=== PATIENT | male | born 1965 | race Caucasian/White ===

== ENCOUNTER 2024-10-30 11:01 | Outpatient (CLI) | payer OTHER, SELFPAY ==
--- NOTE | ~2024-10-30 | XR_ITS ---
Clinical Indication: Back pain PA and lateral views of the chest: Comparison: None Findings: The lungs are clear, without evidence of focal consolidation or pleural effusion. Cardiome diastinal silhouette is within normal limits. Bones and soft tissues are unremarkable. Impression: Normal chest. Reviewed, dictated and finalized at location . Impression: Normal chest.
--- NOTE | ~2024-10-30 | XR_ITS ---
Thoracic spine: Clinical Indication: Back pain AP and lateral views were performed. No fracture is seen. There is normal alignment of the vertebrae. The intervertebral disc spaces appe ar normal. Paravertebral soft tissues appear normal. Impression: No significant abnormalities noted. Reviewed, dictated and finalized at [facility]. Impression: No significant abnormalities noted.
--- OUTSIDE RECORDS SUMMARY | 2024-10-30 11:22 | XMS_ITS | Clinical Summary ---
Author Organization [facility] [employer] [place] Address [address] [address] Care Team Providers Care Anode Crew Supervisor Name Role Phone Unavailable Primary Care Provider Unavailabl e Active Problems No known active problems Encounters Date Type Department Care Team Description 09/25/2024 External Device Data [facility] ABSTRACTION Provider, Abstract 09/25/2024 External Device Data [facility] ABSTRACTION Provider, Abstract 09/25/2024 External Device Data [facility] ABSTRACTION Provider, Abstract 09/21/2024 Results Follow-Up [facility] [employer] [place] [address] [place] [address] Monika Chong MD TSH, LIPID PANEL, COMPREHENSIVE METABOLIC PANEL, CBC WITH DIFFERENTIAL 09/19/2024 10:00 AM CDT Office Visit [facility] [employer] [place] [address] [place] [address] Screening for condition (Primary Dx) from Last 3 Months Social History Tobacco Use Types Packs/Day Years Used Date Smoking Tobacco: Never Assessed Sex and Gender Information Value Date Recorded Sex Assigned at Not on file 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 Gender Identity Not on file Sexual Orientation Not on file Last Filed Vital Signs Vital Sign Reading Time Taken Comments Blood Pressure 114/62 09/19/2024 10:18 AM CDT Pulse - - Temperature - - Respiratory Rate - - Oxygen Saturation - - Inhaled Oxygen Concentration - - Weight 92.1 kg (203 lb) 09/19/2024 10:18 AM CDT Height 172.7 cm (5' 8) 09/19/2024 10:18 AM CDT Body Mass Index 30.87 09/19/2024 10:18 AM CDT Plan of Treatment Health Maintenance Due Date Last Done Comments Pre-Diabetes and Diabetes Screening 1965 HEPATITIS B VACCINES (1 of 3 - 19+ 3-dose series) 11/16 COLORECTAL SCREENING 12/01/2011 Colorectal Cancer Screening 12/01/2011 FIT-DNA Q 3 years 12/01/2011 FIT/FOBT Q 1 year 12/01/2011 Flex Sig/CT Colonography Q 5 years 12/01/2011 ZOSTER VACCINE (1 of 2) 2016 INFLUENZA VACCINE (#1) 2024 DTAP/TDAP/TD VACCINES (2 - Td or Tdap) 08/21/2032 Procedures Procedure Name Priority Date/Time Associated Diagnosis Comments CBC WITH DIFFERENTIAL Routine 09/19/2024 9:50 AM CDT Screening for condition COMPREHENSIVE METABOLIC PANEL Routine 09/19/2024 9:50 AM CDT Screening for condition LIPID PANEL Routine 09/19/2024 9:50 AM CDT Screening for condition TSH Routine 09/19/2024 9:50 AM CDT Screening for condition from Last 3 Months Results * CBC WITH DIFFERENTIAL (09/19/2024 9:50 AM CDT) WBC 5.9 3.8 - 10.8 Thousand/u L [facility] RBC 4.96 4.20 - 5.80 Million/uL [facility] HEMOGLOBIN 15.2 13.2 - 17.1 g/dL [facility] HEMATOCRIT 46.0 38.5 - 50.0 % [facility] MCV 92.7 80.0 - 100.0 fL [facility] MCH 30.6 27.0 - 33.0 pg [facility] MCHC 33.0 32.0 - 36.0 g/dL [facility] Comment: For adults, a slight decrease in the calculated MCHC value (in the range of 30 to 32 g/dL) is most likely not clinically significant; however, it should be interpreted with caution in correlation with other red cell parameters and the patient's clinical condition. RDW 12.7 11.0 - 15.0 % [facility] PLATELETS 281 140 - 400 Thousand/u L [facility] MPV 9.9 7.5 - 12.5 fL [facility] NEUTROPHIL ABSOLUTE 3,918 1,500 - 7,800 cells/uL [facility] LYMPHOCYTE ABSOLUTE 1,375 850 - 3,900 cells/uL [facility] MONOCYTE ABSOLUTE 443 200 - 950 cells/uL [facility] EOSINOPHIL ABSOLUTE 118 15 - 500 cells/uL [facility] BASOPHILS ABSOLUTE 47 0 - 200 cells/uL [facility] NEUTROPHIL 66.4 % [facility] LYMPHOCYTES 23.3 % [facility] MONOCYTE 7.5 % [facility] EOSINOPHILS 2.0 % [facility] BASOPHILS 0.8 % [facility] Comment: Test Performed at: [facility] [address] [place] [address] Melania Falcon MD Blood 09/19/2024 9:50 AM CDT 09/20/2024 3:30 AM CDT us Monika Chong MD HEMATOLOGY ORDERABLES Final Re sult [facility] [phone] [facility] [address] [place] [phone] * TSH (09/19/2024 9:50 AM CDT) TSH 3.11 0.40 - 4.50 mIU/L [facility] Comment: Test Performed at: [facility] [address] [place] [address] Melania Falcon MD Blood 09/19/2024 9:50 AM CDT 09/20/2024 3:30 AM CDT us Monika Chong MD CHEMISTRY ORDERABLES Final Res ult [facility] [phone] [facility] [address] * (ABNORMAL) LIPID PANEL (09/19/2024 9:50 AM CDT) CHOLESTEROL 167 <200 mg/dL [facility] HDL 45 > OR = 40 mg/dL [facility] TRIGLYCERIDE 96 <150 mg/dL [facility] LDL CALCULATED 103(H) mg/dL (calc) [facility] Comment: Reference range: <100 Desirable range <100 mg/dL for primary prevention; <70 mg/dL for patients with CHD or diabetic patients with > or = 2 CHD risk factors. LDL-C is now calculated using the Page calculation, which is a validated novel method providing better accuracy than the Friedewald equation in the estimation of LDL-C. Fabio SS et al. NEVIN. 2013;310(19): 0630-6302 (http://education.[employer]/faq/OBT981) CHOL/HDL RATIO 3.7 <5.0 (calc) [facility] NON-HDL CHOLESTEROL 122 <130 mg/dL (calc) [facility] Comment: For patients with diabetes plus 1 major ASCVD risk factor, treating to a non-HDL-C goal of <100 mg/dL (LDL-C of <70 mg/dL) is considered a therapeutic option. Test Performed at: [facility] [address] [place] [phone] Melania Falcon MD Blood 09/19/2024 9:50 AM CDT 09/20/2024 3:30 AM CDT us Monika Chong MD CHEMISTRY ORDERABLES Final Res ult [facility] [phone] [facility] [address] [place] [address] * (ABNORMAL) COMPREHENSIVE METABOLIC PANEL (09/19/2024 9:50 AM CDT) Pathologist [facility] GLUCOSE 88 65 - 99 mg/dL [facility] Comment: Fasting reference interval BUN 23 7 - 25 mg/dL [facility] CREATININE 1.41(H) 0.70 - 1.30 mg/dL [facility] GFR 58(L) > OR = 60 mL/min/1.7 3m2 [facility] BUN/CREAT RATIO 16 6 - 22 (calc) [facility] SODIUM 138 135 - 146 mmol/L [facility] POTASSIUM 4.3 3.5 - 5.3 mmol/L [facility] CHLORIDE 100 98 - 110 mmol/L [facility] CO2 28 20 - 32 mmol/L [facility] CALCIUM 9.2 8.6 - 10.3 mg/dL [facility] TOTAL PROTEIN 6.6 6.1 - 8.1 g/dL [facility] ALBUMIN 4.0 3.6 - 5.1 g/dL [facility] GLOBULIN 2.6 1.9 - 3.7 g/dL (calc) [facility] ALBUMIN/GLOBULIN RATIO 1.5 1.0 - 2.5 (calc) [facility] BILIRUBIN TOTAL 0.5 0.2 - 1.2 mg/dL [facility] ALKALINE PHOSPHATASE 86 35 - 144 U/L [facility] AST 24 10 - 35 U/L [facility] ALT 18 9 - 46 U/L [facility] Comment: Test Performed at: [facility] [address] Melania Falcon MD Blood 09/19/2024 9:50 AM CDT 09/20/2024 3:30 AM CDT us Monika Chong MD CHEMISTRY ORDERABLES Final Res ult [facility] [phone] [facility] [address] [place] [address] from Last 3 Months
--- OUTSIDE RECORDS SUMMARY | 2024-10-30 11:22 | XMS_ITS | Encounter Summary ---
Author Organization [facility] Address [address] [place] [address] Care Team Providers Care Tractor Expert Name Role Phone Unavailable Primary Care Provider Unavailabl e Encounter Details Date Type Department Care Team (Late st Contact Info) Description 09/21/2024 Results Follow-Up [facility] [place] [address] [place] [place] [address] Monika Chong MD [address] [place] [address] TSH, LIPID PANEL, COMPREHENSIVE METABOLIC PANEL, CBC WITH DIFFERENTIAL Social History Tobacco Use Types Packs/Day Years Used Date Smoking Tobacco: Never Assessed Sex and Gender Information Value Date Recorded Sex Assigned at Not on file 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 * Result Encounter Note - Ann Mack RN - 09/21/2024 8:24 AM CDT Left voicemail for patient to call back regarding lab results. documented in this encounter Plan of Treatment Not on file documented as of this encounter Visit Diagnoses Diagnosis Renal insufficiency- Primary Unspecified disorder of kidney and ureter documented in this encounter
--- OUTSIDE RECORDS SUMMARY | 2024-10-30 11:22 | XMS_ITS | Continuity of Care Document ---
Author Organization [facility] Address [address] [place] [address] Phone Care Team Providers Care Piece Hand Name Role Phone Steven CAMACHO, Suman Unavailable Unavailable Advance Directives Directive Yes / No Effective Date File Name No Information Encounters Encounter Description Practice Location Reason(s) For Visit Diagnoses Date Provider Providers Copied on Encounter [facility], [address] [place] [address], [place], [place], [id number] tel:[phone] [facility] No Information Steven Will. [address] [place] [address], [place], [place], [id number] , [place]. tel:[phone] Family History Family Member Type Diagnosis Age At Onset No Information Payers Payer name Insurance type Covered democrat ID Authoriza tion(s) No Information Social History Type Description Quantity Date Captured Comments Sex Male Smoking Status No Information Chief Complaint And Reason For Visit No Information Reason For Referral Reason For Referral No Information History Of Present Illness Encounter Date Complaint History Of Prese nt Illness No Information Functional Status Date Functional Assessmen t No Information Instructions Date Instruction Additional Infor mation No Information Assessments Type Assessment Date No Information Patient Care Teams Name Effective Dates (start - stop) Status Members No Information
== END 2024-10-30 11:02 | disposition home or self-care (01) ==
LOC: ANHBWCIMG 11:05
PROVIDERS: PCP Nurse Practitioner Adult Health; Visit Provider Nurse Practitioner Adult Health
DX: M54.6 Pain in thoracic spine (principal); M54.9 Dorsalgia, unspecified
CPT/HCPCS: 71046; 72072

== ENCOUNTER 2025-03-25 16:07 | Outpatient (CLI) | payer OTHER, SELFPAY ==
--- NOTE | ~2025-03-25 | XR_ITS ---
EXAMINATION: XR shoulder RT min 2V DATE: 03/25/2025 16:16 INDICATION: Shoulder pain TECHNIQUE: Right shoulder were obtained. COMPARISON: None. FINDINGS: No displaced fracture dislocation or aggressive bone lesion. Soft tissues unremarkable. Slight widening of the AC joint may be present. Mild osteoarthritic changes at the glenohumeral joint. IMPRESSION: 1. Mild widening of the AC joint and osteoarthritic changes. 2. For persisting shoulder pain refractory to conservative therapy, consider correlation with right shoulder MRI for optimal evaluation. Reviewed, dictated and finalized at location A. CLOSER IMPRESSION: 1. Mild widening of the AC joint and osteoarthritic changes. 2. For persisting shoulder pain refractory to conservative therapy, consider co rrelation with right shoulder MRI for optimal evaluation.
--- OUTSIDE RECORDS SUMMARY | 2025-03-25 19:21 | XMS_ITS ---
Author Organization Unknown ENCOUNTERS Encounter Performer Location Date Diagnosis Diagnosis Status Outpatient [place] [address] [phone] Out[place] [address] [place] [phone] [place] *Note: Encounters from your own facility or health system may be excluded. Allergies, Adverse Reactions, Alerts Allergen Type Severity Identification Date Medications Name Date Quantity Days Supplied GPI Number
--- OUTSIDE RECORDS SUMMARY | 2025-03-25 19:21 | XMS_ITS | Clinical Summary ---
Author Organization [facility] Animail MCCOLL Address [address] [address] Care Team Providers Care Computer Systems Designer Name Role Phone Unavailable Primary Care Provider Unavailabl e Active Problems No known active problems Encounters Date Type Department Care Team Description 01/29/2025 External Device Data [facility] ABSTRACTION Provider, Abstract 12/25/2024 External Device Data [facility] ABSTRACTION Provider, Abstract from Last 3 Months Social History Tobacco Use Types Packs/Day Years Used Date Smoking Tobacco: Never Assessed Sex and Gender Information Value Date Recorded Sex Assigned at Not on file 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
== END 2025-03-25 16:08 | disposition home or self-care (01) ==
LOC: ANHBWCIMG 16:08
PROVIDERS: PCP Nurse Practitioner Adult Health; Visit Provider Nurse Practitioner Adult Health
DX: M19.011 Primary osteoarthritis, right shoulder (principal)
CPT/HCPCS: 73030